=== PATIENT | female | born 1990 | race Caucasian/White ===

== ENCOUNTER → 2022-01-19 | Outpatient (CLI) | payer BC, SELFPAY ==
[2022-01-19 18:38] LABS: Amphetamine Urine VISTA NEGATIVE (<1000 ng/mL); Barbiturate Urine VISTA NEGATIVE (< 200 ng/mL); Benzodiazepine Urine VISTA NEGATIVE (< 200 ng/mL); Cocaine Urine VISTA NEGATIVE (< 300 ng/mL); Ecstacy Urine VISTA NEGATIVE (< 500 ng/mL); Methadone Urine VISTA NEGATIVE (< 300 ng/mL); PCP Urine VISTA NEGATIVE (< 25 ng/mL); THC Urine VISTA NEGATIVE (< 50 ng/mL); Vista UDS pH Range 7
[2022-01-21 22:07] LABS: Chlamydia By Nucleic Acid AMP Negative (Negative)
[2022-01-21 22:54] LABS: Gonococcus By Nucleic Acid AMP Negative (Negative)
== END | disposition home or self-care (01) ==
LOC: LABSPEC 16:47
PROVIDERS: PCP Family Medicine; Visit Provider Obstetrics & Gynecology
DX: O09.90 Supervision of high risk pregnancy, unspecified, unspecified trimester (principal); Z3A.00 Weeks of gestation of pregnancy not specified
CPT/HCPCS: 80307; 87086; 87088; 87491; 87591

== ENCOUNTER → 2022-01-26 | Outpatient (CLI) | payer BC, SELFPAY ==
[2022-01-26 13:12] LABS: Absolute Lymphocyte Count 1.79 X10^3/uL (0.83-4.51); Absolute Neutrophil Count 4.9 X10^3/uL (2.0-7.7); Basophil# 0.02 X10^3/uL; Basophil% 0.3 % (0-1); Eosinophil# 0.22 X10^3/uL; Hematocrit 28.9 % (37-47); Hemoglobin 9.3 g/dL (12.0-15.0); Lymphocyte # 1.79 X10^3/ul (0.83-4.51); Lymphocyte % 24.2 % (19-41); Mean Corp Hgb Conc 32.2 g/dL (32-36); Mean Corpuscular Hgb 23.4 pg (27.0-32.0); Mean Corpuscular Volume 72.6 fL (81-99); Mean Platelet Vol. 9.5 fl (6.2-12.0); Monocyte# 0.43 X10^3/uL; Monocyte% 5.8 % (0-10); NRBC Flagged by Analyzer 0 % (0-5); Neutrophil % 66.3 % (47-70); Platelet Count 246 K/mm3 (150-450); RBC Distribution Width CV 16.6 % (11.6-14.6); RBC Distribution Width SD 43.2 fl (35.1-43.9); Red Blood Count 3.98 M/mm3 (4.2-5.4); White Blood Count 7.4 K/mm3 (4.4-11.0)
[2022-01-26 14:30] LABS: HIV - WCH Non-Reactive (Nonreactive); Hepatitis B Surface Antigen Non-Reactive (Nonreactive); Hepatitis C Antibody Non-Reactive (Nonreactive); Rubella IgG Reactive (Nonreactive); Syphilis Antibodies Non-reactive
[2022-01-28 06:08] LABS: Dilute Prothrombin Time (dPT) 38.1 sec (0.0-47.6); Dilute Russell Viper Venom 40.4 sec (0.0-47.0); PTT-LA 35.3 sec (0.0-51.9); Thrombin Time 17.6 sec (0.0-23.0); dPT Confirm Ratio 0.99 Ratio (0.00-1.34)
[2022-01-28 09:25] LABS: Anti-Cardiolipin Ab, IgA, Qn < 9 APL U/mL (0-11); Anti-Cardiolipin Ab, IgG, Qn < 9 GPL U/mL (0-14); Anti-Cardiolipin Ab, IgM, Qn 22 MPL U/mL (0-12); Beta-2-Glycoprotein I IgA <9 (0-25); Beta-2-Glycoprotein I IgG <9 (0-20); Beta-2-Glycoprotein I IgM <9 (0-32); Interpretation Comment: (.)
== END | disposition home or self-care (01) ==
LOC: PAVLAB 12:32
PROVIDERS: Obstetrics & Gynecology; PCP Family Medicine; Referring Provider Obstetrics & Gynecology; Visit Provider Obstetrics & Gynecology
DX: O09.90 Supervision of high risk pregnancy, unspecified, unspecified trimester (principal); N96 Recurrent pregnancy loss
CPT/HCPCS: 36415; 85025; 86146; 86147; 86703; 86762; 86780; 86803; 86850; 86900; 86901; 87340

== ENCOUNTER → 2022-02-19 | Outpatient (CLI) | payer BC, SELFPAY | END | disposition home or self-care (01) | LOC: LAB 16:22 | PROVIDERS: PCP Family Medicine; Visit Provider Obstetrics & Gynecology | DX: Z34.81 Encounter for supervision of other normal pregnancy, first trimester (principal) | CPT/HCPCS: 36415; 86850; 86870; 86900; 86901 ==

== ENCOUNTER → 2022-02-20 | Outpatient (CLI) | payer BC, SELFPAY | END | disposition home or self-care (01) | PROVIDERS: PCP Family Medicine; Referring Provider Obstetrics & Gynecology; Visit Provider Obstetrics & Gynecology | DX: O26.899 Other specified pregnancy related conditions, unspecified trimester (principal); Z67.91 Unspecified blood type, Rh negative; Z3A.00 Weeks of gestation of pregnancy not specified | CPT/HCPCS: 36415 ==

== ENCOUNTER → 2022-03-26 | Outpatient (CLI) | payer BC, SELFPAY | END | disposition home or self-care (01) | LOC: LABSPEC 16:23 | PROVIDERS: PCP Family Medicine; Visit Provider Nurse Practitioner Women's Health | DX: R39.9 Unspecified symptoms and signs involving the genitourinary system (principal) | CPT/HCPCS: 87086; 87088 ==

== ENCOUNTER → 2022-06-08 | Outpatient (CLI) | payer BC, SELFPAY ==
[2022-06-08 07:52] LABS: Absolute Neutrophil Count 5.3 X10^3/uL (2.0-7.7); Basophil# 0.04 X10^3/uL; Basophil% 0.5 % (0-1); Eosinophil# 0.21 X10^3/uL; Eosinophils% 2.8 % (0-5); Hematocrit 35.8 % (37-47); Hemoglobin 12.6 g/dL (12.0-15.0); Lymphocyte % 21.1 % (19-41); Mean Corp Hgb Conc 35.2 g/dL (32-36); Mean Corpuscular Hgb 31.9 pg (27.0-32.0); Mean Corpuscular Volume 90.6 fL (81-99); Mean Platelet Vol. 9.9 fl (6.2-12.0); Monocyte# 0.32 X10^3/uL; Monocyte% 4.2 % (0-10); NRBC Flagged by Analyzer 0 % (0-5); Neutrophil # 5.33 X10^3/uL (2.7-7.7); Neutrophil % 70.3 % (47-70); Platelet Count 142 K/mm3 (150-450); RBC Distribution Width CV 14.6 % (11.6-14.6); Red Blood Count 3.95 M/mm3 (4.2-5.4); White Blood Count 7.6 K/mm3 (4.4-11.0)
[2022-06-08 08:00] LABS: Glucose Challenge Gest 1H 50g 136 mg/dL (70-140)
== END | disposition home or self-care (01) ==
PROVIDERS: PCP Family Medicine; Referring Provider Obstetrics & Gynecology; Visit Provider Obstetrics & Gynecology
DX: O26.899 Other specified pregnancy related conditions, unspecified trimester (principal); Z67.91 Unspecified blood type, Rh negative; O09.90 Supervision of high risk pregnancy, unspecified, unspecified trimester
CPT/HCPCS: 36415; 82950; 85025; 86900; 86901

== ENCOUNTER → 2022-06-10 | Outpatient (CLI) | payer BC, SELFPAY ==
[2022-06-10 08:48] LABS: Glucose GTT-Gestation. Fasting 79 mg/dL (<105)
== END | disposition home or self-care (01) ==
LOC: LAB 07:49
PROVIDERS: PCP Family Medicine; Referring Provider Nurse Practitioner Women's Health; Visit Provider Nurse Practitioner Women's Health
DX: Z13.1 Encounter for screening for diabetes mellitus (principal)
CPT/HCPCS: 36415; 82951; 82952

== ENCOUNTER → 2022-06-16 | Outpatient (CLI) | payer BC, SELFPAY ==
[2022-06-16 08:45] LABS: Glucose GTT-Gestation. Fasting 77 mg/dL (<105)
[2022-06-16 10:15] LABS: Glucose GTT-Gestational 1 Hr 143 mg/dL (<190)
[2022-06-16 10:52] LABS: Glucose GTT-Gestational 2 Hr 142 mg/dL (<165)
[2022-06-16 12:09] LABS: Glucose GTT-Gestational 3 Hr 80 L (<145)
== END | disposition home or self-care (01) ==
LOC: LAB 07:50
PROVIDERS: PCP Family Medicine; Referring Provider Nurse Practitioner Women's Health; Visit Provider Nurse Practitioner Women's Health
DX: Z13.1 Encounter for screening for diabetes mellitus (principal)
CPT/HCPCS: 36415; 82951; 82952

== ENCOUNTER → 2022-07-06 | Outpatient (CLI) | payer BC, SELFPAY ==
[2022-07-06 08:06] LABS: Absolute Lymphocyte Count 1.85 X10^3/uL (0.83-4.51); Absolute Neutrophil Count 5.9 X10^3/uL (2.0-7.7); Basophil# 0.04 X10^3/uL; Basophil% 0.5 % (0-1); Eosinophil# 0.24 X10^3/uL; Eosinophils% 2.8 % (0-5); Hematocrit 34.4 % (37-47); Hemoglobin 12.1 g/dL (12.0-15.0); Lymphocyte # 1.85 X10^3/ul (0.83-4.51); Lymphocyte % 21.5 % (19-41); Mean Corp Hgb Conc 35.2 g/dL (32-36); Mean Corpuscular Hgb 32.8 pg (27.0-32.0); Mean Corpuscular Volume 93.2 fL (81-99); Mean Platelet Vol. 9.8 fl (6.2-12.0); Monocyte# 0.49 X10^3/uL; Monocyte% 5.7 % (0-10); NRBC Flagged by Analyzer 0 % (0-5); Neutrophil # 5.87 X10^3/uL (2.7-7.7); Neutrophil % 68.3 % (47-70); Platelet Count 144 K/mm3 (150-450); RBC Distribution Width CV 13.6 % (11.6-14.6); RBC Distribution Width SD 45.9 fl (35.1-43.9); Red Blood Count 3.69 M/mm3 (4.2-5.4); White Blood Count 8.6 K/mm3 (4.4-11.0)
== END | disposition home or self-care (01) ==
PROVIDERS: Nurse Practitioner Women's Health; PCP Family Medicine; Referring Provider Registered Nurse; Visit Provider Registered Nurse
DX: D69.6 Thrombocytopenia, unspecified (principal)
CPT/HCPCS: 36415; 85025

== ENCOUNTER → 2022-07-20 | Outpatient (CLI) | payer BC, SELFPAY | END | disposition home or self-care (01) | PROVIDERS: PCP Family Medicine; Visit Provider Obstetrics & Gynecology | DX: N89.8 Other specified noninflammatory disorders of vagina (principal) | CPT/HCPCS: 87070; 87205 ==

== ENCOUNTER 2022-07-24 09:10 | Outpatient (CLI) | payer BC, SELFPAY ==
[2022-07-24] VITALS (11 sets, daily range): BP systolic 131; BP diastolic 82; PULSE 68–73; TEMP 36.9; O2SAT 100; BMI 32.1
[2022-07-24] MEDS: Acetaminophen 500 MG Tablet 1000 MG PO (10:32)
--- NOTE | 2022-07-25 05:45 | OB.TRI.PN_ITS ---
Progress Notes Progress Note: Patient presents for triage evaluation secondary to ankle trauma FHT: 140 Moderate variability reactive no decelerations category I tracing [place]: no regular Contractions Assessment and plan: ankle trauma no abdominal trauma Reactive NST, reassuring maternal and status patient discharged to home to follow-up as sergey. See problem list details for additional plan information. Charges/Coding Procedures Urinary/Genital 52xxx-59xxx: 21005-53 non-stress test Interp
== END 2022-07-24 11:00 | disposition home or self-care (01) ==
LOC: WPOUT 09:15 → WP 09:16
PROVIDERS: PCP Family Medicine; Visit Provider Obstetrics & Gynecology
DX: O9A.219 Injury, poisoning and certain other consequences of external causes complicating pregnancy, unspecified trimester (principal); S99.919A Unspecified injury of unspecified ankle, initial encounter
CPT/HCPCS: 59025; 59050; 99218; G0378

== ENCOUNTER 2022-07-24 11:16 | Emergency (ER) | payer BC, SELFPAY ==
[2022-07-24 11:18] VITALS: BP 117/70; PULSE 88; RESP 16; TEMP 36.6; O2SAT 100; BMI 29.9
--- NOTE | 2022-07-24 11:55 | RAD_ITS ---
STUDY: X-RAY - LEFT FOOT CLINICAL: Female, 32 years old. injury TECHNIQUE: 3 view(s) of the foot. COMPARISON: None. FINDINGS: There are acute oblique and mildly displaced corner fractures at the bases of the fourth and fifth proximal phalanges with mild overlying soft tissue swelling. No additional acute fractures of the foot are present. Normal talus, calcaneus, and tarsal bones. Normal visualized subtalar, talonavicular, calcaneocuboid, tarsal and tarsometatarsal articulations. Normal metatarsi. Normal metatarsophalangeal joint of the great toe. Normal tibial and fibular sesamoid bones. Normal interphalangeal joint of the great toe. Normal phalanges of the great toe. Normal second through fifth metatarsophalangeal joints. Normal interphalangeal joints. RAD/Foot min 3 Views IMPRESSION: 1. Acute mildly displaced corner fractures at the bases of the fourth and fifth proximal phalanges Electronically Signed: Star Arevalo MD at 12:58 EST ,
--- NOTE | 2022-07-24 11:55 | EX.ED.DYSGE1 ---
HPI History of Present Illness Chief Complaint: Lower Extremity Injury Informant: patient Narrative Narrative: [id number] female is at a well barefoot and outside. She went down steps on her buttock and hit her head. She notes pain over the 3 smallest toes of the left foot. She was monitored in OB for the past couple hours and was cleared from their standpoint. PFSH PFSH Home Medications prenat.vits,giovanny,rxm-wvmd-lufip 1 tab PO DAILY 01/05/22 [History Last Taken Unknown] iron fum,pscplx 125 mg-folic acid 1 mg-vit C 40 mg-niacin 3 mg capsule (Integra F) 1 cap PO DAILY #30 caps 03/06/22 [Rx Last Taken Unknown] progesterone micronized 200 mg capsule 200 mg PO QHS 03/26/22 [History Last Taken Unknown] Allergy/AdvReac Type Severity Reaction Status Date / Time No Known Allergies Allergy Verified 07/24/22 11:17 Family History Father Hearing impaired Grandmother Hearing impaired Surgical History S/P D&C (status post dilation and curettage) Social History adopted: No household members: spouse number of children: 1 current occupational status: unemployed current occupation: [employer] pets and animals: No Smoking Status: Never smoker alcohol intake: never substance use type: does not use caffeine: No do you feel safe at home: Yes additional social history: Spouse:Parvez RAMIREZ JAMES ED Constitutional Constitutional ED: Denies chills or weight loss Eyes Eyes: Denies change in vision or diplopia ENT ENT ED: Denies ear pain, rhinorrhea or sore throat Cardiovascular Cardiovascular: Denies chest pain, orthopnea, palpitations or racing heartbeat Respiratory/Chest Respiratory/Chest: Denies cough, dyspnea or orthopnea Gastrointestinal Gastrointestinal: Denies abdominal pain, diarrhea, nausea or vomiting Genitourinary Genitourinary ED: Denies dysuria, hematuria or urinary frequency Musculoskeletal Musculoskeletal: Denies arthralgias or myalgias Integumentary Denies abscess or rash Neurologic Neurologic: Denies headache(s) or weakness Psychiatric Psychiatric: Denies anxiety, depression, suicidal ideation or suicidal thoughts Endocrine Endocrinology: Denies polydipsia, polyphagia or polyuria Allergic/Immunologic Allergic/Immunologic ED: Denies mouth swelling, tongue swelling or urticaria EXAM Physical Exam Const Vital Signs: 07/24/22 11:18 Temperature 98 F Temperature Source Temporal Pulse Rate 88 Respiratory Rate 16 Blood Pressure 117/70 Blood Pressure Mean 85 Pulse Ox 100 Oxygen Delivery Method Room Air Positive well nourished and well developed General Appearance ED: well developed HEENT Reports normocephalic, head/scalp atraumatic and moist mucous membranes Eyes PERRL and EOMs intact bilaterally Neck no lymphadenopathy, supple and no JVD Resp normal respiratory effort and clear to auscultation bilaterally Cardio regular rate, regular rhythm and no murmurs GI normal to inspection, nondistended, normoactive bowel sounds and non-tender GI Narrative: Gravid uterus Palpation: soft Back/Spine no CVA tenderness and normal ROM Extremity normal to inspection General Extremety ED: Negative for edema General Extremity: Negative for edema Neuro oriented x3 and CN's II-XII intact bilaterally Sensorium / Orientation: alert Motor Exam: strength 5/5 throughout Psych Psych Narrative: To palpation of the third fourth and fifth toes on the left foot. No subungual hematoma noted. Mood & Affect: Negative for depressed or tearful Skin no rashes or lesions noted and no wounds MDM MDM MDM Narrative Medical decision making narrative: Interpretation of the plain films of left foot is acute fractures of the proximal phalanx of the fourth and fifth digits. Patient be placed in a postoperative shoe instructions for Tylenol and ice. We did talk about narcotic pain medication but she states that she is starting to dilate and there is a risk of delivery so she is going to hold. Discharge Plan Triage Chief Complaint: Lower Extremity Injury ED Provider: Angel Levy Dx/Rx/DC Orders Prescriptions: No Action prenat.vits,giovanny,jjj-icok-rvdir Tablet 1 tab PO DAILY progesterone micronized 200 mg capsule 200 mg PO QHS Integra F 125-1-40-3 mg capsule 1 cap PO DAILY Qty: 30 6RF Rx Instructions: administer between meals Primary Care Provider: Lyric Soriano Referrals: Lyric Soriano [Primary Care Provider] -
[2022-07-24 12:28] VITALS: RESP 16
== END 2022-07-24 12:38 | disposition home or self-care (01) ==
PROVIDERS: Emergency Provider Emergency Medicine; PCP Family Medicine; Visit Provider Emergency Medicine
DX: O99.891 Other specified diseases and conditions complicating pregnancy (principal); M79.672 Pain in left foot
CPT/HCPCS: 73630; 99283

== ENCOUNTER → 2022-08-05 | Outpatient (CLI) | payer BC, SELFPAY ==
[2022-08-05 10:54] LABS: Absolute Lymphocyte Count 1.87 X10^3/uL (0.83-4.51); Absolute Neutrophil Count 7.7 X10^3/uL (2.0-7.7); Basophil# 0.03 X10^3/uL; Basophil% 0.3 % (0-1); Eosinophil# 0.17 X10^3/uL; Eosinophils% 1.6 % (0-5); Hematocrit 35.4 % (37-47); Hemoglobin 12.4 g/dL (12.0-15.0); Lymphocyte # 1.87 X10^3/ul (0.83-4.51); Mean Corpuscular Hgb 32.9 pg (27.0-32.0); Mean Corpuscular Volume 93.9 fL (81-99); Mean Platelet Vol. 10.3 fl (6.2-12.0); Monocyte# 0.58 X10^3/uL; Monocyte% 5.6 % (0-10); NRBC Flagged by Analyzer 0 % (0-5); Neutrophil # 7.66 X10^3/uL (2.7-7.7); Neutrophil % 73.6 % (47-70); Platelet Count 119 K/mm3 (150-450); RBC Distribution Width SD 44.2 fl (35.1-43.9); Red Blood Count 3.77 M/mm3 (4.2-5.4); White Blood Count 10.4 K/mm3 (4.4-11.0)
== END | disposition home or self-care (01) ==
PROVIDERS: PCP Family Medicine; Referring Provider Nurse Practitioner Women's Health; Visit Provider Nurse Practitioner Women's Health
DX: O09.90 Supervision of high risk pregnancy, unspecified, unspecified trimester (principal); Z3A.00 Weeks of gestation of pregnancy not specified
CPT/HCPCS: 36415; 85025; 87081

== ENCOUNTER 2022-08-16 20:45 | Inpatient (IN) | payer BC, SELFPAY ==
[2022-08-16] VITALS (7 sets, daily range): BP systolic 127–150; BP diastolic 75–101; PULSE 74–88; TEMP 36.6–36.8; O2SAT 98; BMI 32.3
[2022-08-16 20:44] LABS: ROM Internal Control Test YES-OK TO RESULT pt. (Internal QC); ROM Patient Test POSITIVE (Negative)
[2022-08-16] MEDS: Lactated Ringers 1,000 ML 50 ML IV (21:00)
[2022-08-16 21:22] LABS: Absolute Lymphocyte Count 1.65 X10^3/uL (0.83-4.51); Absolute Neutrophil Count 6.1 X10^3/uL (2.0-7.7); Basophil# 0.02 X10^3/uL; Basophil% 0.2 % (0-1); Eosinophil# 0.13 X10^3/uL; Eosinophils% 1.5 % (0-5); Hematocrit 35.2 % (37-47); Hemoglobin 12.9 g/dL (12.0-15.0); Lymphocyte # 1.65 X10^3/ul (0.83-4.51); Lymphocyte % 19.2 % (19-41); Mean Corp Hgb Conc 36.6 g/dL (32-36); Mean Corpuscular Hgb 33.7 pg (27.0-32.0); Mean Corpuscular Volume 91.9 fL (81-99); Mean Platelet Vol. 10.5 fl (6.2-12.0); Monocyte# 0.58 X10^3/uL; Monocyte% 6.8 % (0-10); NRBC Flagged by Analyzer 0 % (0-5); Neutrophil # 6.11 X10^3/uL (2.7-7.7); Neutrophil % 71.1 % (47-70); Platelet Count 112 K/mm3 (150-450); RBC Distribution Width CV 12.6 % (11.6-14.6); RBC Distribution Width SD 41.7 fl (35.1-43.9); Red Blood Count 3.83 M/mm3 (4.2-5.4); White Blood Count 8.6 K/mm3 (4.4-11.0)
[2022-08-16 22:00] LABS: AST(SGOT) 28 U/L (15-37); Alanine Aminotransfer ALT/SGPT 25 U/L (13-56); Creatinine, Serum 0.67 mg/dL (0.55-1.02); EST Glomerular Filtration Rate 109 mL/min (>60); Est Glom Filt Rate - Afr Amer 132 mL/min (>60); Estimated Creatinine Clearance 110.48 ml/min; Uric Acid 4.3 mg/dL (2.6-6.0)
[2022-08-16] MEDS: LACTATED RINGERS 500 ML 999 ML IV (23:28)
[2022-08-17] VITALS (17 sets, daily range): BP systolic 111–127; BP diastolic 58–79; PULSE 67–85; RESP 14–18; TEMP 36.3–37.6; O2SAT 97–98
[2022-08-17] MEDS: Ondansetron 4 MG/2 ML Vial IV (01:06)
[2022-08-17] MEDS: Oxytocin 10 UNITS/ML Vial IM (01:49)
--- NOTE | 2022-08-17 02:00 | HP.PCM.OB_ITS ---
HPI - General General Date of Admission: 08/16/22 HPI Narrative MELE CORDERO, is a 32 F who presents with clear ROM since 1840. irregular ctx at home. good fm. no vb. was complicated by -hx of delivery requiring progesterone. -stable thrombocytopenia -rH negative blood type treated with rhogam -GBS negative Maternal Data Information JET Calculator Estimated Delivery Date Method Current WG Current Estimate 08/30/22 LMP (Certain) 38w 1d Other Estimates 08/28/22 Ultrasound #1 38w 3d PFSH PFSH Medical History (Updated 08/16/22 @ 20:13 by Nolvia Glez) Cervical incompetence Family history of hearing loss at age younger than 7 years Superficial varicosities Home Medications prenat.vits,giovanny,scz-jtbi-tzbyl 1 tab PO DAILY 01/05/22 [History Last Taken 08/15/22] iron fum,pscplx 125 mg-folic acid 1 mg-vit C 40 mg-niacin 3 mg capsule (Integra F) 1 cap PO DAILY 08/16/22 [History Last Taken 08/15/22] Allergy/AdvReac Type Severity Reaction Status Date / Time No Known Allergies Allergy Verified 08/12/22 08:30 Family History Father Hearing impaired Grandmother Hearing impaired Surgical History S/P D&C (status post dilation and curettage) Social History adopted: No household members: spouse number of children: 1 current occupational status: unemployed current occupation: [employer] pets and animals: No Smoking Status: Never smoker alcohol intake: never substance use type: does not use caffeine: No do you feel safe at home: Yes additional social history: Spouse:Parvez History 3 Elective abortions Hx Para 1 Spontaneous abortions 1 Hx # Term Pregnancies Ectopic pregnancies Hx # Pregnancies Multiple births # of living children 1 Past Pregnancies Del. Date Name GA/Weeks Outcome Route Bth Weight Gen Labor Lgth Anesthesia Del Locatn Provider FOB Unknown 11/2016 16 wk delivery then D&C Female [place] Unknown 03/10/2018 Jasmin 37 live - full term 6# 8oz Female 6 hr epidural [place] [facility] Parvez Delivery Date: Last Updated by: Patt Conti NP, VALVING MACHINE OPERATOR-C labor, short cervix. Delivery Date: Last Updated by: Patt Conti NP, VALVING MACHINE OPERATOR-C short cervix:labor few days after d/c'd progesterone vaginal Visit Details Expected Delivery Route/Plan Labor Preferences- CB/BF classes: no labor support person: Parvez labor intervention preferences: [] pain management options preferred: epidural cut cord/dad catch: yes : yes PP control planned: discussed discussed possible routes of delivery and associated risks: [] special requests: [] Plans Covid status: discussed Flu vaccine: given Tdap vaccine: given Rhogam: given LARC form signed: yes Problem list reviewed and updated with the most current plan of care details and appropriate orders placed. Relevant counseling for the gestational age provided. Continue routine care and follow up unless otherwise noted in visit notes/problem list details OB Flowsheet Initial Weight: Not Recorded Date -?-?-?-?-?-?-?-?-?-?-?-?- EGA Weight BP Urine Prot -?-?-?-?-?-?-?-?-?-?-?-?- Glucose FHR FuHt Pres Dilation -?-?-?-?--?-?-?-?-?-?-?-?- Effaced St Visit Note 01/19/22 -?-?-?-?-?-?-?-?-?-?-?-?- 8w 1d 171 lb 2 oz 132/78 -?-?-?-?-?-?-?-?-?-?-?-?- 155 -?-?-?-?-?-?-?-?-?-?-?-?- JV- CRL consiste nt with LMP. on progesterone for h/o short CL. Declined pap until after . pt already saw MFM on 01/06 and plan made for CL testing 01/26/22 -?-?-?-?-?-?-?-?-?-?-?-?- 9w 1d 169 lb 120/82 120/82 -?-?-?-?-?-?-?-?-?-?-?-?- 170 -?-?-?-?-?-?-?-?-?-?-?-?- SM- small subcho rionic hematoma seen 3 mm, brown discharge, cervix long and closed 02/19/22 -?-?-?-?-?-?-?-?-?-?-?-?- 12w 4d 167 lb 4 oz 118/66 -?-?-?-?-?-?-?-?-?-?-?-?- 160 -?-?-?-?-?-?-?-?-?-?-?-?- SM- no vb crampi ng 03/19/22 -?-?-?-?-?-?-?-?-?-?-?-?- 16w 4d 169 lb 4 oz 108/64 Nega tive -?-?-?-?-?-?-?-?-?-?-?-?- Negative 157 -?-?-?-?-?-?-?-?-?-?-?-?- JV- pt had CL 2 days ago (results pending) continue serial CL's. no complaints today. 03/26/22 -?-?-?-?-?-?-?-?-?-?-?-?- 17w 4d 170 lb 2 oz 110/78 Nega tive -?-?-?-?-?-?-?-?-?-?-?-?- Negative 151 0 -?-?-?-?-?-?-?-?-?-?-?-?- -work in for c ramping and pressure. Cx long,thick,closed. Reassured. Urine culture pending 04/13/22 -?-?-?-?-?-?-?-?-?-?-?-?- 20w 1d 174 lb 173 lb 116/84 -?-?-?-?-?-?-?-?-?-?-?-?- 160 -?-?-?-?-?-?-?-?-?-?-?-?- SM- no vb lof go od fm no regular ctx anatomy done today 05/11/22 -?-?-?-?-?-?-?-?-?-?-?-?- 24w 1d 176 lb 6 oz 125/79 Nega tive -?-?-?-?-?-?-?-?-?-?-?-?- Negative 160 -?-?-?-?-?-?-?-?-?-?-?-?- Sm- no vb lof go od fm no regular ctx 06/08/22 -?-?-?-?-?-?-?-?-?-?-?-?- 28w 1d 182 lb 6 oz 124/76 Nega tive -?-?-?-?-?-?-?-?-?-?-?-?- Negative 148 27 -?-?-?-?-?-?-?-?-?-?-?-?- MH-No VB, LOF. G ood FM. 28 wk labs. Ordered 3hr GTT. Rhogam, tdap. Larc. 06/15/22 -?-?-?-?-?-?-?-?-?-?-?-?- 29w 1d 185 lb 2 oz 128/74 Nega tive -?-?-?-?-?-?-?-?-?-?-?-?- Negative 146 -?-?-?-?-?-?-?-?-?-?-?-?- -work in for hard strange pulsing sensation but baby that work her up. Did not recur. Otherwise feels well. Good Fm. No VB or CTX. She is nervous about 1 hr GCT tomorrow. Reassured. FHT easily found and multiple movements noted. 06/22/22 -?-?-?-?-?-?-?-?-?-?-?-?- 30w 1d 185 lb 119/73 Negative -?-?-?-?-?-?-?-?-?-?-?-?- Negative 154 30 -?-?-?-?-?-?-?-?-?-?-?-?- LC- no lof,vb,ct x. good FM. calm meditation renetta recommended for increased general anxiety. denies additional interventions at this time. will obtain CBC repeat in 2 weeks. 07/06/22 -?-?-?-?-?-?-?-?-?-?-?-?- 32w 1d 186 lb 6 oz 118/77 Nega tive -?-?-?-?-?-?-?-?-?-?-?-?- Negative 143 32 -?-?-?-?-?-?-?-?-?-?-?-?- LC- no lof,vb.ct x. good fm. plt 145 today, stable from 2 weeks ago. denies easy bleeding likely physiologic. 07/20/22 -?-?-?-?-?-?-?-?-?-?-?-?- 34w 1d 189 lb 8 oz 136/80 Nega tive -?-?-?-?-?-?-?-?-?-?-?-?- Negative 140 35 0.5 -?-?-?-?-?-?-?-?-?-?-?-?- SM- co small spo tting lof good fm co increased discharge and odor, micro cultu re sent 08/05/22 -?-?-?-?-?-?-?-?-?-?-?-?- 36w 3d 192 lb 2 oz 146/83 122/78 -?-?-?-?-?-?-?-?-?-?-?-?- 140 36 0.5 -?-?-?-?-?-?-?-?-?-?-?-?- 20 -4 LC- no ctx /lof/vb. good fm. gbs obtained today. reviewed cbc with Shawn Dailey will repeat cbc in 2 week. 08/12/22 -?-?-?-?-?-?-?-?-?-?-?-?- 37w 3d 196 lb 2 oz 124/76 Nega tive -?-?-?-?-?-?-?-?-?-?-?-?- Negative 144 37 0.5 -?-?-?-?-?-?-?-?-?-?-?-?- -4 MH-NO VB , lof. Cervical exam same. No reg CTX. Good FM NST FHR Rate Baby A Variability:: Moderate Accelerations:: 15 x 15 Decelerations:: None NST Reactive:: Yes FHR Category:: Category I ROS Cardiovascular Cardiovascular: Denies chest pain, diaphoresis, dyspnea or edema Respiratory/Chest Respiratory/Chest: Denies change in mental status, chest congestion or cough Gastrointestinal Gastrointestinal: Denies diarrhea, hemorrhoids, nausea or vomiting Genitourinary Genitourinary: Denies change in urinary stream Musculoskeletal Musculoskeletal: Reports none Integumentary Integumentary: Reports none Neurologic Neurologic: Reports none Psychiatric Psychiatric: Reports none Endocrine Endocrinology: Reports none Hematologic/Lymphatic Hematologic/Lymphatic: Reports none Allergic/Immunologic Allergic/Immunologic: Reports none Vital Signs Vital Signs Vital Signs: 08/16/22 19:53 08/16/22 19:53 08/16/22 19:55 Temperature Temperature Source Pulse Rate 81 Blood Pressure 127/101 H 144/78 H BP Systolic 127 144 BP Diastolic 101 78 Pulse Ox 08/16/22 19:55 08/16/22 19:55 08/16/22 20:11 Temperature Temperature Source Pulse Rate 78 Blood Pressure 132/78 H BP Systolic 132 BP Diastolic 78 Pulse Ox 98 08/16/22 20:11 08/16/22 19:53 08/16/22 19:53 Temperature 97.9 F Temperature Source Temporal Pulse Rate 76 Blood Pressure BP Systolic BP Diastolic Pulse Ox 08/16/22 20:26 08/16/22 20:26 08/16/22 20:41 Temperature Temperature Source Pulse Rate 79 Blood Pressure 136/83 H 148/75 H BP Systolic 136 148 BP Diastolic 83 75 Pulse Ox 08/16/22 20:41 08/16/22 20:57 08/16/22 20:57 Temperature Temperature Source Pulse Rate 88 78 Blood Pressure 150/88 H BP Systolic 150 BP Diastolic 88 Pulse Ox 08/16/22 22:09 08/16/22 22:09 08/16/22 22:09 Temperature Temperature Source Pulse Rate 74 Blood Pressure 138/86 H BP Systolic 138 BP Diastolic 86 Pulse Ox 98 08/16/22 22:09 08/16/22 22:09 08/17/22 00:17 Temperature 98.2 F Temperature Source Temporal Temporal Pulse Rate Blood Pressure BP Systolic BP Diastolic Pulse Ox 08/17/22 00:17 08/17/22 00:17 08/17/22 00:17 Temperature Temperature Source Pulse Rate 71 Blood Pressure 126/79 H BP Systolic 126 BP Diastolic 79 Pulse Ox 98 08/17/22 00:17 08/17/22 01:56 08/17/22 01:56 Temperature 99.6 F H Temperature Source Pulse Rate 72 Blood Pressure 122/62 H BP Systolic 122 BP Diastolic 62 Pulse Ox Weight Weight: 194 lb 8 oz Body Mass Index (BMI) 32.3 Physical Exam Const alert, oriented x3 and no apparent distress General Appearance: cooperative and well kempt Orientation / Consciousness: awake and oriented to person Exam Limitations: no limitations HEENT normocephalic Mouth: oral and palatal mucosa normal Neck full ROM Chest inspection of chest normal Resp normal respiratory effort Effort and Inspection: able to speak in complete sentences and symmetric chest movement Cardio regular rate Peripheral Pulses: pulses 2+ throughout GI normal to inspection, nondistended, normoactive bowel sounds Inspection: gravid appearance of the vagina normal External Female Exam: normal appearance of the urethra; Negative for external lesion Manual OB Exam: estimated gestational size appropriate and presentation cephalic Uterus Palpation: Negative for uterus tender Extremity normal to inspection Skin no rashes or lesions noted Psych Activity / Motor Behavior: appropriate eye contact Speech: normal speech Labs Labs Labs: Blood Type O NEGATIVE Antibody Screen NEGATIVE Hct 35.2 % (37-47) L Hgb 12.9 g/dL (12.0-15.0) Syphilis Total Ab Non-reactive Rubella IgG Antibody Reactive (Nonreactive) Hep Bs Antigen Non-Reactive (Nonreactive) Chlamydia DNA ([place]) Negative (Negative) Neisseria gonorrhoeae DNA ([place]) Negative (Negative) HIV 1&2 Antibody Non-Reactive (Nonreactive) Glucose 1 Hr 50 gm 136 mg/dL (70-140) Miscellaneous Test Assessment & Plan (1) Supervision of high risk , antepartum: COMMENT: PRR JET:08/30/22 boy gerald PC:Jasmin Sp:Parvez (2) : QUALIFIERS: Weeks of gestation: 36 weeks Qualified Code(s): Z3A.36 - 36 weeks gestation of COMMENT: GBS Negative, anatomy nl, NIPT low risk, declined ntd and carrier screen. (3) Low platelet count: COMMENT: Minimal. rpt CBC at 36 weeks (142,145,118) Steroid completed 08/11. Rpt CBC 1 wk (4) Rh negative state in antepartum period: COMMENT: rhogam given 01/26, repeat at 28 wk, pp and prn bleeding (5) History of cervical incompetence in , currently : COMMENT: Vag progesterone in 2nd . appt with MFM 01/06/22 Prometrium 200mg 15-16 weeks until 36 weeks; TV CLM 16-24 wks due to hx, if less than 2cm would offer cerclage. If between 2-2.5cm will readdress pt concerns.03/16 US CL 46.9mm,03/30 CL nl, 04/27 CL nl, repeat anatomy 4 wks, 05/11 growth nl PLAN: Plan Patient presents s/p SROM with plan expectant management for Pain management: plans epidural. GBS negative. -if no cervical change in 6 hours follow ROM would initiate pitocin Management of any complications: none I have reviewed the [facility] and made any clinically relevant updates. Dr. Juarez updated on admission, poc and agrees with co-management of care d/t thyrombocytopenia. platelets on admission 112, down from 118.
--- NOTE | 2022-08-17 02:12 | EX.PCM.OBRPT ---
Assessment & Plan (1) Normal spontaneous vaginal delivery: COMMENT: IAL s/p SROM at 38w. . Boy:Abimael. LC (2) Rh negative state in antepartum period: COMMENT: rhogam given 01/26, repeat at 28 wk, pp and prn bleeding (3) Low platelet count: COMMENT: Minimal. rpt CBC at 36 weeks (142,145,118) Steroid completed 08/11. Rpt CBC 1 wk Maternal Data Information JET Calculator Estimated Delivery Date Method Current WG Current Estimate 08/30/22 LMP (Certain) 38w 1d Other Estimates 08/28/22 Ultrasound #1 38w 3d Final JET Source: US >20 weeks Gestational age: 38 Vaginal Delivery Maternal Presentation Maternal Presentation: Spontaneous Rupture of Membranes Maternal Presentation: SROM at 1840, clear fluid Operative Information Date of Procedure: 08/17/22 Pre-Operative Diagnosis: Post-Operative Diagnosis: Surgery / Procedure Performed: Spontaneous Vaginal Delivery Type of Anesthesia: None Estimated Blood Loss: 250 Time of Delivery: 01:45 Findings Description of Procedure: Patient began pushing and delivered the head in the HERMILO presentation. The head was delivered atraumatically. The anterior and posterior shoulders delivered without complication followed by the rest of the infant and the was placed on the maternal abdomen. Delayed cord clamping was employed for approximately 3minutes. Cord was clamped and cut and gentle traction was applied to the cord and the placenta delivered spontaneously immediately following it was noted to be intact with three-vessel cord. The perineum and vagina were inspected and noted to have no laceration. EBL was 250. Patient and infant tolerated delivery well entered recovery period bonding skin to skin. Presentation: Vertex Amniotic Membrane Rupture Type: Spontaneous Time of Membrane Rupture: 1840 Amniotic Fluid Description: Clear Placental Delivery Description: Spontaneous Placenta Disposition: [facility] Cord Vessel Description: 3 Vessels Cord Entanglement: None (1 minute): 9 (5 minute): 9 Delayed Cord Clamping: Yes Post Vaginal Delivery Medications Given After Delivery: - (IM pitocin) Episiotomy Description: None Laceration: None Procedures Urinary/Genital 52xxx-59xxx: [id number] Vaginal Delivery global pkg (CNM delivery)
[2022-08-17] MEDS: Acetaminophen 500 MG Tablet 1000 MG PO (05:25)
[2022-08-17] MEDS: Senna/Docusate Sodium 1 Tablet PO (10:50)
[2022-08-17] MEDS: Naproxen 500 MG Tablet PO (10:50)
--- NOTE | 2022-08-17 12:50 | DCINST_ITS ---
Discharge Instructions Diet Discharge Diet: No restrictions Activity Discharge Activity: May Not Drive and May Shower May resume sexual activity in: 6 weeks Weight Bearing Status: Full weight bearing Dressing / Incision Call your doctor if your incision/area has: Sudden Increased Bleeding, Increased Pain/ Swelling and Foul Smelling Discharge Call your doctor if you observe: Fever of 101 or Higher, Numbness or Tingling, Change in Color, Inability to urinate, Inability to have a bowel movement, Using more than 1 pad per hour, Shortness of breath, Dizziness, Fainting spells, Chest pain, Calf discomfort and Uncontrolled pain Follow Up Care Please Follow Up With: Trupti Holm CNM When: 6 weeks , please call office to make an appointment. Congratulations on the of your baby RICHARD!!!! Test Results: Test results from this visit will be discussed in further detail at your follow- up appointment, if applicable. Discharge Plan Admission Admit Date/Time: 08/16/22 20:45 Attending Provider: Trupti Holm Primary Care Provider: Lyric Soriano Discharge Orders/Prescriptions Prescriptions: No Action prenat.vits,giovanny,lvm-kyzi-ivllt Tablet 1 tab PO DAILY Integra F 125-1-40-3 mg capsule 1 cap PO DAILY Rx Instructions: administer between meals Referrals / Follow Up: Lyric Soriano [Primary Care Provider] -
[2022-08-18 01:17] VITALS: BP 118/62; PULSE 70; RESP 16; TEMP 36.1
[2022-08-18 04:58] VITALS: BP 123/74; PULSE 84; RESP 16; TEMP 36.4
[2022-08-18 05:24] LABS: Hematocrit 31.2 % (37-47); Hemoglobin 11.1 g/dL (12.0-15.0); Mean Corp Hgb Conc 35.6 g/dL (32-36); Mean Corpuscular Hgb 33.3 pg (27.0-32.0); Mean Corpuscular Volume 93.7 fL (81-99); Platelet Count 111 K/mm3 (150-450); RBC Distribution Width CV 12.8 % (11.6-14.6); RBC Distribution Width SD 43.5 fl (35.1-43.9); Red Blood Count 3.33 M/mm3 (4.2-5.4); White Blood Count 8.5 K/mm3 (4.4-11.0)
[2022-08-18] MEDS: Naproxen 500 MG Tablet PO (07:37)
[2022-08-18 07:38] VITALS: BP 119/79; PULSE 79; RESP 16; TEMP 36.5
--- NOTE | 2022-08-18 08:32 | PCM.PN.OB ---
Subjective Subjective Patient doing well without complaints. Tolerating PO. Ambulating and voiding without difficulty. feeding well. Denies chest pain, shortness of breath, calf pain/swelling, fevers, chills, lightheadedness. Objective Data Objective Data Vital Signs: Vital Signs Temp Pulse Resp BP Pulse Ox O2 Del Method 97.7 F L 79 16 119/79 98 Room Air 08/18/22 07:38 08/18/22 07:38 08/18/22 07:38 08/18/22 07:38 08/17/22 03:57 08/18/22 07:38 Oxygen Delivery Method Room Air Weight: 88.224 kg Body Mass Index (BMI) 32.3 Intake & Output: Intake and Output for Last 24 Hours 08/16/22 08/17/22 08/18/22 23:59 23:59 23:59 Intake Total 623.33 / 623.33 318.34 / 318.34 Output Total 900 / 900 Balance 623.33 / 623.33 -581.66 / -581.66 Lab / Micro Data Result Diagrams: 08/18/22 05:12 08/16/22 21:00 Labs: Laboratory Results - last 24 hr 08/18/22 05:12: WBC 8.5, RBC 3.33 L, Hgb 11.1 L, Hct 31.2 L, MCV 93.7, MCH 33.3 H, MCHC 35.6, RDW Std Deviation 43.5, RDW Coeff of Jennifer 12.8, Plt Count 111 L, MPV 10.0 ROS Constitutional Constitutional: Reports systems reviewed and no addt'l complaints, except as documented Cardiovascular Cardiovascular: Reports systems reviewed and no addt'l complaints, except as documented Respiratory/Chest Respiratory/Chest: Reports systems reviewed and no addt'l complaints, except as documented Gastrointestinal Gastrointestinal: Reports systems reviewed and no addt'l complaints, except as documented Physical Exam Const alert, oriented x3 and no apparent distress HEENT Head and Scalp: atraumatic Resp normal respiratory effort GI soft to palpation and non-tender Bimanual Exam - Vag & Uterus: uterus non-tender Uterus Palpation: uterus fundus firm (below Umbilicus) Assessment & Plan (1) Normal spontaneous vaginal delivery: COMMENT: IAL s/p SROM at 38w. . Boy:Abimael. LC PLAN: Plan s/p PPD # 1 1. routine post delivery care 2. breast feeding- support given 3. rh neg- rhogam PRN 4. rubella immune
== END 2022-08-18 10:50 | disposition home or self-care (01) | DRG 807 ==
LOC: WPOUT 20:53 → WP 20:53
PROVIDERS: Admitting Provider Registered Nurse; PCP Family Medicine; Visit Provider Registered Nurse
DX: O99.12 Other diseases of the blood and blood-forming organs and certain disorders involving the immune mechanism complicating childbirth (principal); Z37.0 Single live birth; D69.6 Thrombocytopenia, unspecified; O26.893 Other specified pregnancy related conditions, third trimester; Z67.91 Unspecified blood type, Rh negative; Z3A.38 38 weeks gestation of pregnancy; Z87.51 Personal history of pre-term labor
CPT/HCPCS: 59025; 59050; 82565; 84112; 84450; 84460; 84550; 85025; 85027; 86850; 86900; 86901; 99221; J7120; G0378; J2405

== ENCOUNTER → 2022-09-28 | Outpatient (CLI) | payer BC, SELFPAY ==
[2022-10-05 19:25] LABS: HPV APTIMA, High Risk Negative (Negative)
== END | disposition home or self-care (01) ==
LOC: LABSPEC 13:32
PROVIDERS: PCP Family Medicine; Referring Provider Registered Nurse; Visit Provider Registered Nurse
DX: Z12.4 Encounter for screening for malignant neoplasm of cervix (principal)
CPT/HCPCS: 87624; 88175; G0145